=== PATIENT | male | born 1945 | race Caucasian/White ===

== ENCOUNTER → 2017-07-02 | Outpatient (CLI) | payer MEDICARE, OTHER ==
[2015-05-11 06:25] VITALS: BP 120/59
[~2017-07-02] MED LIST: ASPI-630 PO; BUSP10TA PO; ESOM40CA PO; FLUO20CA16 PO; LIPITOR80 MG PO; LISI1TAB5 PO; METF500T4 PO; METO50TA29 PO; POTA20TA12 PO; TAMS0.4C97 PO; TRAZ50TA15 PO
--- NOTE | 2017-07-02 16:51 | RAD ---
Carotid ultrasound, 07/02/2017: History: Carotid atherosclerosis Duplex evaluation of the carotid arteries in neck was performed including grayscale, color-flow and spectral Doppler analysis. There is moderate atherosclerotic plaquing in the common carotid arteries and at both carotid bifurcations, right greater than left. Some of these plaques are partially calcified. On the right, the peak systolic velocity in the internal carotid artery is 173 cm/s with an end-diastolic velocity of 29 cm/s. The internal carotid to common carotid artery ratio is 1.6. The peak systolic velocity measurement suggests narrowing in the 50-70% diameter range while the end-diastolic velocity measurement and the ratio suggests a lesser degree of narrowing. Correlation with the color images suggests that the narrowing probably is in the 50-70% diameter range. The proximal right internal carotid artery is tortuous. On the left the peak systolic velocity in the internal carotid artery is 91 cm/s with an end-diastolic velocity of 28 cm/s. These Doppler findings suggest narrowing in the 0-50% diameter range. Antegrade flow is present in both vertebral arteries in the neck. IMPRESSION: Moderate atherosclerotic plaquing at the carotid bifurcations, right greater than left with underlying luminal narrowing of the proximal right internal carotid artery in the 50-70% diameter range and narrowing of the proximal left internal carotid artery in the 0-50% diameter range. Note: Stenosis calculations for CTA, MRA and conventional angiography are based upon determination of the distal ICA diameter in accordance with the NASCET methodology. Stenosis calculations for Doppler studies are derived from validated velocity criteria which are known to correlate with NASCET methodology of determining stenosis.
== END | disposition home or self-care (01) ==
LOC: US 13:00
PROVIDERS: ATTEND Nurse Practitioner
DX: I65.23 Occlusion and stenosis of bilateral carotid arteries (principal); I10 Essential (primary) hypertension
CPT/HCPCS: 93880

== ENCOUNTER 2017-07-30 07:41 | Inpatient (IN) | payer MEDICARE, OTHER ==
[~2017-07-30] VITALS: Ht 175.3 cm; Wt 107.2 kg
[2017-07-30 08:20] VITALS: BP 110/61
[2017-07-30 08:42] LABS: INFLUENZA A PATIENT NEGATIVE (NEGATIVE); INFLUENZA B PATIENT NEGATIVE (NEGATIVE)
[2017-07-30 10:15] LABS: BASO % 0 % (0-3); EOS % 0 % (0-3); HEMATOCRIT 41.2 % (39.0-53.0); HEMOGLOBIN 14.4 g/dL (13.0-17.5); LYMPH # 0.9 x10^3/uL (1.0-4.8); LYMPH % 6 % (24-48); MEAN CORPUSCULAR HEMOGLOBIN 30 pg (25-35); MEAN CORPUSCULAR HGB CONC 35 g/dL (31-37); MEAN CORPUSCULAR VOLUME 86 fL (79-100); MONO # 0.9 x10^3/uL (0.0-1.1); MONO % 7 % (0-9); NEUT # 12.8 x10^3uL (1.8-7.7); NEUT % 87 % (31-73); PLATELET COUNT 221 x10^3/uL (140-400); RED BLOOD COUNT 4.81 x10^6/uL (4.30-5.70); RED CELL DISTRIBUTION WIDTH 12.9 % (11.5-14.5); WHITE BLOOD COUNT 14.7 x10^3/uL (4.0-11.0)
[2017-07-30] MEDS ORDERED: METO25TA2 PO (10:16)
[2017-07-30] MEDS ORDERED: PANT40TA5 PO (10:16)
[2017-07-30] MEDS ORDERED: ROSU40TA29 PO (10:16)
[2017-07-30 10:29] LABS: ALBUMIN 3.5 g/dL (3.4-5.0); ALBUMIN/GLOBULIN RATIO 1.1 (1.0-1.7); CALCIUM 8.7 mg/dL (8.5-10.1); CREATININE 1.4 mg/dL (0.7-1.3); GFR 49.8; POTASSIUM 4.2 mmol/L (3.5-5.1); TOTAL BILIRUBIN 0.5 mg/dL (0.2-1.0); TOTAL PROTEIN 6.7 g/dL (6.4-8.2)
[2017-07-30 11:03] LABS: % LYMPHS 5 % (24-48); % MONOS 4 % (0-10); % SEGS 91 % (35-66); PLT ESTIMATE ADEQUATE (ADEQUATE)
[2017-07-30] MEDS: IV NORMAL SALINE 1,000ML 1,000 ML IV SCH ×3 (11:03→21:38)
[2017-07-30 11:04] LABS: TOXIC GRANULATION SLIGHT
--- NOTE | 2017-07-30 11:12 | RAD ---
Abdomen, 2 views, 07/30/2017: History: Abdominal pain, nausea and vomiting Gas is present in large and small bowel in a nonspecific pattern. No free air is seen in the abdomen. There is no evidence of organomegaly. Lower pelvic calcifications are compatible with phleboliths.. There are moderate multilevel hypertrophic degenerative changes in the spine. IMPRESSION: No acute abdominal abnormality is detected.
--- NOTE | 2017-07-30 13:05 | HP ---
ADMIT DATE: 07/30/2017 HISTORY OF PRESENT ILLNESS: The patient has been feeling ill for the last 3 days prior to admission with increased nausea, some vomiting and severe diarrhea, diffuse abdominal discomfort, generalized weakness. The patient's white count was noted to be over 14,000 and had an elevated temperature. In any case, the patient was brought in for hydration and further evaluation of his diarrhea, abdominal pain, working diagnosis of possible viral gastroenteritis, ____ in the community as such. PAST MEDICAL HISTORY: Includes that of diabetes, obesity, hypertension, hypercholesterolemia, and BPH. MEDICATIONS: Include aspirin 81, buspirone 10 mg 3 times a day, Prozac 20 mg a day, lisinopril/HCTZ 20/12.5, metformin 500 b.i.d., metoprolol 25 mg daily, Protonix 40 daily, potassium chloride 20, Crestor 40, Flomax 0.4 and trazodone 50 at bedtime. ALLERGIES: No known allergies. FAMILY HISTORY: Positive for heart disease and diabetes. SOCIAL HISTORY: The patient denies smoking, alcohol or drug use. REVIEW OF SYSTEMS: As noted. Denies chest pain, shortness of breath, headaches, visual change, blurred vision, or double vision. Denies any neurological symptoms; primarily GI with nausea, mild vomiting and severe diarrhea and abdominal discomfort. Other than that, basically stable. PHYSICAL EXAMINATION: GENERAL: Pleasant white male, moderately obese. VITAL SIGNS: Blood pressure 110/60, respiratory rate 20, pulse 90, temperature 99.2. HEENT: The patient's head was atraumatic, normocephalic. Eyes: PERRLA without jaundice. Mouth and throat were normal. NECK: Supple, no JVD or thyromegaly. LUNGS: Diminished throughout, but clear. CARDIOVASCULAR: Regular sinus rhythm. ABDOMEN: Soft, protuberant. Diffuse tenderness, slight guarding, but no rebounding. EXTREMITIES: No clubbing, cyanosis or edema. NEUROLOGIC: Intact. Normal male genitalia. LABORATORY DATA: White count is noted was elevated to 14,000. Chemistries were basically unremarkable except for the creatinine elevated at 1.4, blood sugar 140. Serology negative for influenza. IMPRESSION: Gastroenteritis, abdominal pain, nausea, vomiting, dehydration, obesity, type 2 diabetes, and chronic kidney disease stage 3. PLAN: The patient will be admitted and placed on IV fluids. Adjust his medications. Support pain medication and antinausea medication as indicated. We will continue to monitor the patient accordingly and make further evaluation once he has been stabilized. RAQUEL LINO MD DR: JAVED/darren JOB#: [id number] / [id number]
[2017-07-30 13:59] LABS: BILIRUBIN,URINE NEG (NEG); CLARITY,URINE HAZY; COLOR,URINE AMBER; GLUCOSE,URINE NEG (NEG); UROBILINOGEN,URINE 0.2 mg/dL (0.2 mg/dL)
[2017-07-30 14:00] LABS: BACTERIA,URINE FEW /HPF (0-FEW); HYALINE CASTS, URINE FEW /HPF; NITRITE,URINE NEG (NEG); SQUAMOUS EPITHELIAL CELL,UR OCC /LPF; WBC,URINE 0 /HPF (0-4)
[2017-07-30] MEDS: busPIRone 10 MG TABLET. PO SCH ×2 (14:04→21:38)
[2017-07-30] MEDS: HEPARIN PF for SUB-Q USE 5,000 UNIT/0.5 ML VIAL. SQ SCH ×2 (14:07→21:36)
[2017-07-30] MEDS ORDERED: ALPR0.5T6 PO (14:14)
[2017-07-30 15:57] VITALS: BP 113/72
[2017-07-30] MEDS: metFORMIN 500 MG TABLET PO SCH (17:20)
[2017-07-30 19:48] VITALS: BP 136/70
[2017-07-30] MEDS: traZODone 50 MG TABLET. PO PRN (21:38)
[2017-07-30] MEDS: METOPROLOL SUCC 24HR ER 25 MG TAB.ER.24H. PO SCH (21:38)
[2017-07-30] MEDS: ATORVASTATIN CALCIUM 20 MG TABLET PO SCH (21:39)
[2017-07-30] MEDS: TAMSULOSIN 0.4 MG CAP.ER.24H. PO SCH (21:39)
[2017-07-30] MEDS: PANTOPRAZOLE 40 MG TABLET. PO SCH (21:40)
[2017-07-30 22:28] LABS: FECAL OB PT NEGATIVE (NEG)
[2017-07-30 23:12] VITALS: BP 110/64
[2017-07-31] MEDS: IV NORMAL SALINE 1,000ML 1,000 ML IV SCH ×2 (01:50→05:49)
[2017-07-31 03:12] LABS: HEMOGLOBIN A1C 6.1 % (4.8-5.6)
[2017-07-31] MEDS: HEPARIN PF for SUB-Q USE 5,000 UNIT/0.5 ML VIAL. SQ SCH ×3 (05:48→20:27)
[2017-07-31 05:56] VITALS: BP 106/61
[2017-07-31 06:41] LABS: BASO % 0 % (0-3); EOS # 0.2 x10^3/uL (0.0-0.7); EOS % 2 % (0-3); HEMATOCRIT 36.4 % (39.0-53.0); HEMOGLOBIN 12.7 g/dL (13.0-17.5); LYMPH # 2.5 x10^3/uL (1.0-4.8); LYMPH % 28 % (24-48); MEAN CORPUSCULAR HEMOGLOBIN 30 pg (25-35); MEAN CORPUSCULAR HGB CONC 35 g/dL (31-37); MEAN CORPUSCULAR VOLUME 87 fL (79-100); MONO # 1.2 x10^3/uL (0.0-1.1); MONO % 13 % (0-9); NEUT % 57 % (31-73); PLATELET COUNT 191 x10^3/uL (140-400); RED CELL DISTRIBUTION WIDTH 12.8 % (11.5-14.5); WHITE BLOOD COUNT 8.9 x10^3/uL (4.0-11.0)
[2017-07-31 06:48] LABS: CALCIUM 8.4 mg/dL (8.5-10.1); CREATININE 1.2 mg/dL (0.7-1.3); GFR 59.5; POTASSIUM 3.9 mmol/L (3.5-5.1)
--- NOTE | 2017-07-31 07:35 | RAD ---
Chest, 2 views, 07/30/2017: History: Fever and chills There has been a previous median sternotomy. The heart size and pulmonary vascularity are normal. No pulmonary infiltrates are seen. There is no evidence of pleural fluid. There is moderate hypertrophic spurring in the spine with bony bridging at multiple levels. IMPRESSION: No acute cardiopulmonary abnormality is detected.
[2017-07-31] MEDS: LISINOPRIL 20 MG TABLET PO SCH (08:54)
[2017-07-31] MEDS: hydroCHLOROthiazide 12.5 MG CAPSULE PO SCH (08:54)
[2017-07-31] MEDS: POTASSIUM CHLORIDE 20 MEQ TABLET.ER. PO SCH (08:54)
[2017-07-31] MEDS: metFORMIN 500 MG TABLET PO SCH ×2 (08:54→18:06)
[2017-07-31] MEDS: busPIRone 10 MG TABLET. PO SCH ×3 (08:55→20:16)
[2017-07-31] MEDS: FLUoxetine HCL 20 MG CAPSULE PO SCH (08:55)
[2017-07-31] MEDS: ASPIRIN 81 MG TAB.CHEW PO SCH (08:55)
[2017-07-31] MEDS ORDERED: METOPROLOL SUCC 24HR ER 25 MG TAB.ER.24H. PO SCH (09:00)
[2017-07-31] MEDS ORDERED: PNEUMOC CONJ VACC 23-VALENT 0.5 ML VIAL. VAX IM ONE (09:00)
[2017-07-31] MEDS ORDERED: PANTOPRAZOLE 40 MG TABLET. PO SCH (09:00)
[2017-07-31] MEDS ORDERED: TAMSULOSIN 0.4 MG CAP.ER.24H. PO SCH (09:00)
[2017-07-31 11:04] VITALS: BP 134/64
[2017-07-31 14:30] VITALS: BP 114/57
[2017-07-31 19:40] VITALS: BP 149/61
[2017-07-31] MEDS: traZODone 50 MG TABLET. PO PRN (20:16)
[2017-07-31] MEDS: TAMSULOSIN 0.4 MG CAP.ER.24H. PO SCH (20:16)
[2017-07-31] MEDS: PANTOPRAZOLE 40 MG TABLET. PO SCH (20:16)
[2017-07-31] MEDS: METOPROLOL SUCC 24HR ER 25 MG TAB.ER.24H. PO SCH (20:16)
[2017-07-31] MEDS: ATORVASTATIN CALCIUM 20 MG TABLET PO SCH (20:17)
[2017-07-31 23:09] VITALS: BP 115/65
[2017-08-01] MEDS: HEPARIN PF for SUB-Q USE 5,000 UNIT/0.5 ML VIAL. SQ SCH (05:20)
[2017-08-01 05:52] VITALS: BP 131/68
[2017-08-01 06:50] LABS: BASO % 1 % (0-3); EOS # 0.3 x10^3/uL (0.0-0.7); EOS % 3 % (0-3); HEMATOCRIT 36.7 % (39.0-53.0); HEMOGLOBIN 12.8 g/dL (13.0-17.5); LYMPH # 2.4 x10^3/uL (1.0-4.8); LYMPH % 28 % (24-48); MEAN CORPUSCULAR HEMOGLOBIN 30 pg (25-35); MEAN CORPUSCULAR HGB CONC 35 g/dL (31-37); MEAN CORPUSCULAR VOLUME 86 fL (79-100); MONO # 1.1 x10^3/uL (0.0-1.1); MONO % 13 % (0-9); NEUT # 4.7 x10^3uL (1.8-7.7); NEUT % 56 % (31-73); PLATELET COUNT 195 x10^3/uL (140-400); RED BLOOD COUNT 4.27 x10^6/uL (4.30-5.70); RED CELL DISTRIBUTION WIDTH 13.2 % (11.5-14.5); WHITE BLOOD COUNT 8.5 x10^3/uL (4.0-11.0)
[2017-08-01 07:03] LABS: CALCIUM 8.9 mg/dL (8.5-10.1); GFR 73.5; POTASSIUM 4.1 mmol/L (3.5-5.1)
[2017-08-01 09:08] VITALS: BP 131/68
[2017-08-01] MEDS: LISINOPRIL 20 MG TABLET PO SCH (09:08)
[2017-08-01] MEDS: FLUoxetine HCL 20 MG CAPSULE PO SCH (09:08)
[2017-08-01] MEDS: ASPIRIN 81 MG TAB.CHEW PO SCH (09:08)
[2017-08-01] MEDS: busPIRone 10 MG TABLET. PO SCH (09:09)
[2017-08-01] MEDS: POTASSIUM CHLORIDE 20 MEQ TABLET.ER. PO SCH (09:09)
[2017-08-01] MEDS: hydroCHLOROthiazide 12.5 MG CAPSULE PO SCH (09:09)
[2017-08-01] MEDS: metFORMIN 500 MG TABLET PO SCH (09:09)
--- NOTE | 2017-08-01 19:14 | PN ---
DATE: SUBJECTIVE: The patient came in with dehydration and generalized weakness. The patient is doing better. We are advancing his diet slowly to see if he tolerates, that he also had quite a bit of diarrhea, but that is slowing down as well. OBJECTIVE: VITAL SIGNS: Blood pressure 114/60, respiratory rate 20, pulse 70, afebrile. GENERAL: The patient is alert and oriented. LUNGS: Diminished. ABDOMEN: Soft, nontender. White count has come down from almost 15,000 down to approximately 9, hemoglobin from 14 to 12 showing the degree of dehydration, otherwise blood sugars seem to be improving and will go ahead and continue to monitor him accordingly on the advancement of his diet. His urine specific gravity is 1.030 consistent with severe dehydration. IMPRESSION: Dehydration, diarrhea. PLAN: As above. Continue to monitor the patient accordingly, make further evaluation as he progresses on his diet. RAQUEL LINO MD DR: JAVED/darren JOB#: [id number] / [id number]
--- NOTE | 2017-08-01 21:29 | DS ---
DATE OF DISCHARGE: 08/01/2017 HOSPITAL COURSE: The patient is a 71-year-old male who came in with nausea, vomiting, diarrhea. The patient has been feeling very well and came in, he was markedly dehydrated white count over 14,000, elevated temperature, although his influenza screen was negative, the patient obviously in some type of viral infection. He was dehydrated. He is a type 2 diabetic. He has got chronic kidney disease. He was brought in. He was rehydrated basically and he made good progress during the rest of his hospitalization. Advanced his diet slowly and he recovered very nicely. Chest x-ray and abdominal series were basically unremarkable. Labs did not demonstrate anything in particular except he is slightly anemic at 12.8, increased monocytes consistent with his probably a viral infection. Blood sugars were in the low 100s. Urine showed marked concentration of urine, but in any case, the patient made excellent progress during the rest of his hospitalization. See EMRAD, decreased activity, increase fluids. He will be discharged to home, followed up as an outpatient and make further evaluation on him as indicated as an outpatient. IMPRESSION: Dehydration, gastroenteritis, diarrhea, morbid obesity, type 2 diabetes, ____, he had acute renal failure secondary to dehydration. Creatinine improved from 1.4 to 1. RAQUEL LINO MD DR: JAVED/darren JOB#: [id number] / [id number]
== END 2017-08-01 10:00 | disposition home or self-care (01) | DRG 392 ==
LOC: 1 SOUTH 07:52
PROVIDERS: ADMIT Family Medicine; ATTEND Family Medicine
DX: K52.9 Noninfective gastroenteritis and colitis, unspecified (principal); N17.9 Acute kidney failure, unspecified; E11.22 Type 2 diabetes mellitus with diabetic chronic kidney disease; D64.9 Anemia, unspecified; E66.01 Morbid (severe) obesity due to excess calories; B34.9 Viral infection, unspecified; E78.00 Pure hypercholesterolemia, unspecified; E86.0 Dehydration; I12.9 Hypertensive chronic kidney disease with stage 1 through stage 4 chronic kidney disease, or unspecified chronic kidney disease; N18.3 Chronic kidney disease, stage 3 (moderate); N40.0 Benign prostatic hyperplasia without lower urinary tract symptoms; Z83.3 Family history of diabetes mellitus; Z82.49 Family history of ischemic heart disease and other diseases of the circulatory system; Z79.4 Long term (current) use of insulin; Z68.34 Body mass index [BMI] 34.0-34.9, adult
CPT/HCPCS: 36415; 71046; 74021; 80048; 80053; 81001; 82274; 82550; 82947; 83036; 84484; 85007; 85025; 87324; 87804; 90732; J7030

== ENCOUNTER → 2017-08-20 | Outpatient (CLI) | payer MEDICARE, OTHER ==
[2017-08-01 09:08] VITALS: BP 131/68
[~2017-08-20] MED LIST changes: +ALPR0.5T6 PO; +METO25TA2 PO; +PANT40TA5 PO; +ROSU40TA29 PO
[2017-08-20 15:58] LABS: ALBUMIN 3.8 g/dL (3.4-5.0); ALBUMIN/GLOBULIN RATIO 0.9 (1.0-1.7); CALCIUM 9.3 mg/dL (8.5-10.1); CREATININE 1.2 mg/dL (0.7-1.3); GFR 59.5; POTASSIUM 4.6 mmol/L (3.5-5.1); TOTAL BILIRUBIN 0.6 mg/dL (0.2-1.0); TOTAL PROTEIN 7.9 g/dL (6.4-8.2)
== END | disposition home or self-care (01) ==
LOC: LAB 14:39
PROVIDERS: ATTEND Nurse Practitioner
DX: E78.5 Hyperlipidemia, unspecified (principal)
CPT/HCPCS: 36415; 80053; 80061

== ENCOUNTER → 2017-08-27 | Outpatient (CLI) | payer MEDICARE, OTHER ==
[2017-08-01 09:08] VITALS: BP 131/68
[2017-08-27 14:08] LABS: BASO # 0.1 x10^3/uL (0.0-0.2); BASO % 1 % (0-3); EOS # 0.3 x10^3/uL (0.0-0.7); EOS % 3 % (0-3); HEMOGLOBIN 14.8 g/dL (13.0-17.5); LYMPH % 29 % (24-48); MEAN CORPUSCULAR HEMOGLOBIN 30 pg (25-35); MEAN CORPUSCULAR HGB CONC 34 g/dL (31-37); MEAN CORPUSCULAR VOLUME 87 fL (79-100); MONO # 0.8 x10^3/uL (0.0-1.1); MONO % 8 % (0-9); NEUT % 59 % (31-73); PLATELET COUNT 237 x10^3/uL (140-400); RED BLOOD COUNT 4.95 x10^6/uL (4.30-5.70); RED CELL DISTRIBUTION WIDTH 13.2 % (11.5-14.5); WHITE BLOOD COUNT 10.1 x10^3/uL (4.0-11.0)
[2017-08-28 03:11] LABS: HEMOGLOBIN A1C 5.8 % (4.8-5.6)
== END | disposition home or self-care (01) ==
LOC: LAB 13:20
PROVIDERS: ATTEND Family Medicine
DX: E11.65 Type 2 diabetes mellitus with hyperglycemia (principal)
CPT/HCPCS: 36415; 82043; 83036; 85025; 87086

== ENCOUNTER → 2017-09-02 | Outpatient (CLI) | payer MEDICARE, OTHER ==
[~2017-09-02] MED LIST changes: +BUPIVACAINE MPF 0.25% 10 ML VIAL. ONE; +IOHEXOL 300 MG/ML 50 ML VIAL. ONE; +LIDOCAINE 1% PF 30 ML VIAL. ONE; +methylPREDNISolone ACETATE 40 MG/ML VIAL. ONE
== END | disposition home or self-care (01) ==
LOC: SURG 13:32
PROVIDERS: ATTEND Anesthesiology
DX: S46.001A Unspecified injury of muscle(s) and tendon(s) of the rotator cuff of right shoulder, initial encounter (principal); M47.816 Spondylosis without myelopathy or radiculopathy, lumbar region; G89.29 Other chronic pain; X58.XXXA Exposure to other specified factors, initial encounter; Y93.89 Activity, other specified; Y92.89 Other specified places as the place of occurrence of the external cause; Y99.8 Other external cause status
CPT/HCPCS: 99204; J1030; J2001; J3490; Q9967

== ENCOUNTER → 2018-07-06 | Outpatient (CLI) | payer MEDICARE, OTHER ==
[~2018-07-06] MED LIST changes: -BUPIVACAINE MPF 0.25% 10 ML VIAL. ONE; -IOHEXOL 300 MG/ML 50 ML VIAL. ONE; -LIDOCAINE 1% PF 30 ML VIAL. ONE; +METF500T16 PO; -METF500T4 PO; +ROSU40TA21 PO; -ROSU40TA29 PO; +TRAZ-85 PO; -TRAZ50TA15 PO; -methylPREDNISolone ACETATE 40 MG/ML VIAL. ONE
[2018-07-06 15:16] LABS: BILIRUBIN,URINE NEG (NEG); CLARITY,URINE HAZY; COLOR,URINE YELLOW; GLUCOSE,URINE NEG (NEG); NITRITE,URINE NEG (NEG); RBC,URINE RARE /HPF (0-2); UROBILINOGEN,URINE 0.2 mg/dL (0.2 mg/dL)
[2018-07-06 15:17] LABS: BACTERIA,URINE 0 /HPF (0-FEW); SPERM,URINE PRESENT /HPF; SQUAMOUS EPITHELIAL CELL,UR OCC /LPF; WBC,URINE OCC /HPF (0-4)
[2018-07-06 15:22] LABS: BASO # 0.1 x10^3/uL (0.0-0.2); BASO % 1 % (0-3); EOS # 0.2 x10^3/uL (0.0-0.7); EOS % 2 % (0-3); HEMATOCRIT 44.7 % (39.0-53.0); HEMOGLOBIN 15.4 g/dL (13.0-17.5); LYMPH # 2.5 x10^3/uL (1.0-4.8); LYMPH % 24 % (24-48); MEAN CORPUSCULAR HEMOGLOBIN 30 pg (25-35); MEAN CORPUSCULAR HGB CONC 35 g/dL (31-37); MEAN CORPUSCULAR VOLUME 87 fL (79-100); MONO # 0.7 x10^3/uL (0.0-1.1); MONO % 7 % (0-9); NEUT % 66 % (31-73); PLATELET COUNT 260 x10^3/uL (140-400); RED BLOOD COUNT 5.14 x10^6/uL (4.30-5.70); RED CELL DISTRIBUTION WIDTH 12.9 % (11.5-14.5); WHITE BLOOD COUNT 10.6 x10^3/uL (4.0-11.0)
[2018-07-06 15:30] LABS: ALBUMIN 3.7 g/dL (3.4-5.0); CALCIUM 8.9 mg/dL (8.5-10.1); CREATININE 1.2 mg/dL (0.7-1.3); GFR 59.3; POTASSIUM 4.3 mmol/L (3.5-5.1); TOTAL BILIRUBIN 0.5 mg/dL (0.2-1.0); TOTAL PROTEIN 7.5 g/dL (6.4-8.2)
[2018-07-07 11:18] LABS: THYROID STIM HORMONE (TSH) 2.086 uIU/mL (0.358-3.740)
[2018-07-08 12:09] LABS: PSA FREE 0.56 ng/mL; PSA TOTAL 1.4 ng/mL (0.0-4.0)
== END | disposition home or self-care (01) ==
LOC: LAB 13:33
PROVIDERS: ATTEND Family Medicine
DX: R35.1 Nocturia (principal); E11.65 Type 2 diabetes mellitus with hyperglycemia; I10 Essential (primary) hypertension
CPT/HCPCS: 36415; 80053; 80061; 81001; 82043; 84153; 84154; 84443; 85025

== ENCOUNTER → 2020-10-24 | Outpatient (CLI) | payer MEDICARE, OTHER ==
[~2020-10-24] MED LIST changes: +IOHEXOL 240 MG/ML 50ML VIAL. ONE; +IOHEXOL 300 MG/ML 75 ML VIAL. IV ONE; +LISI1TAB37 PO; -LISI1TAB5 PO; -PANT40TA5 PO; +PANT40TA6 PO; -ROSU40TA21 PO; +ROSU40TA22 PO; +TRAZ-120 PO; -TRAZ-85 PO
[2020-10-24 13:39] LABS: BASO # 0.1 x10^3/uL (0.0-0.2); BASO % 1 % (0-3); EOS # 0.2 x10^3/uL (0.0-0.7); EOS % 2 % (0-3); HEMATOCRIT 45.2 % (39.0-53.0); HEMOGLOBIN 15.3 g/dL (13.0-17.5); LYMPH # 2.1 x10^3/uL (1.0-4.8); LYMPH % 20 % (24-48); MEAN CORPUSCULAR HEMOGLOBIN 30 pg (25-35); MEAN CORPUSCULAR HGB CONC 34 g/dL (31-37); MEAN CORPUSCULAR VOLUME 88 fL (79-100); MONO # 1.1 x10^3/uL (0.0-1.1); MONO % 10 % (0-9); NEUT # 7.1 x10^3uL (1.8-7.7); NEUT % 67 % (31-73); PLATELET COUNT 266 x10^3/uL (140-400); RED BLOOD COUNT 5.12 x10^6/uL (4.30-5.70); RED CELL DISTRIBUTION WIDTH 12.9 % (11.5-14.5); WHITE BLOOD COUNT 10.6 x10^3/uL (4.0-11.0)
[2020-10-24 13:41] LABS: ALBUMIN 3.8 g/dL (3.4-5.0); CALCIUM 8.9 mg/dL (8.5-10.1); CREATININE 1.5 mg/dL (0.7-1.3); GFR 45.5; POTASSIUM 4.2 mmol/L (3.5-5.1); TOTAL BILIRUBIN 0.6 mg/dL (0.2-1.0); TOTAL PROTEIN 7.8 g/dL (6.4-8.2)
--- NOTE | 2020-10-24 14:26 | RAD ---
CT abdomen pelvis with contrast. HISTORY: Abdominal pain CT abdomen pelvis was done using 60 mL Omnipaque 300 contrast. Lung bases are clear. There is no effu pamela. There is a midline abdominal wall hernia just below the xiphoid in the upper abdomen. There is no bowel in the hernia. Liver is normal in appearance. There are calcified gallstones in the gallblad josefina. The gallbladder wall is not thickened. Spleen and adrenal glands are normal. Pancreas is normal. There is no mass or hydronephrosis in the kidneys. There is no bowel obstruction. Appendix is normal . There are bilateral inguinal hernias. Prostate is generous in size. There is degenerative and hyper trophic change in the lumbar spine without severe spinal stenosis. IMPRESSION: 1. Cholelithiasis. 2. Bilateral inguinal hernias. 3. Enlarged prostate. 4. No abdominal or pelvic mass or other acute finding. PQRS Compliance Statement: One or more of the following individualized dose reduction techniques were utilized for this examinat ion: 1. Automated exposure control 2. Adjustment of the mA and/or kV according to patient size 3. Use of iterative reconstruction technique Electronically signed by: Valentín Burris MD (10/24/2020 2:24 PM) [facility]
[2020-10-24 14:53] LABS: BACTERIA,URINE 0 /HPF (0-FEW); BILIRUBIN,URINE NEG (NEG); CLARITY,URINE CLEAR; COLOR,URINE AMBER; GLUCOSE,URINE NEG (NEG); NITRITE,URINE NEG (NEG); RBC,URINE 0 /HPF (0-2); UROBILINOGEN,URINE 0.2 mg/dL (0.2 mg/dL); WBC,URINE 0 /HPF (0-4)
== END ==
LOC: CT 12:07
PROVIDERS: ATTEND Family Medicine
DX: K80.20 Calculus of gallbladder without cholecystitis without obstruction (principal); K40.90 Unilateral inguinal hernia, without obstruction or gangrene, not specified as recurrent; N40.0 Benign prostatic hyperplasia without lower urinary tract symptoms
CPT/HCPCS: 36415; 74177; 80053; 81001; 82150; 83690; 85025; 87086; Q9967

== ENCOUNTER → 2020-10-30 | Outpatient (CLI) | payer MEDICARE, OTHER ==
[~2020-10-30] MED LIST changes: -IOHEXOL 240 MG/ML 50ML VIAL. ONE; -IOHEXOL 300 MG/ML 75 ML VIAL. IV ONE
--- NOTE | 2020-10-30 09:12 | RAD ---
Examination: Ultrasound abdomen complete HISTORY: History of abdominal distention, abdominal pain COMPARISON: None available FINDINGS: The visualized pancreas grossly appears unremarkable. There is increased echogenicity identified thro ughout the liver likely hepatic steatosis. The common bile duct measures 4.2 mm in transverse dimensi on. There is increased echogenicity identified throughout the liver likely hepatic steatosis. Multipl e echogenicities identified in the gallbladder likely cholelithiasis. The right kidney measures 11.0 x 6.7 x 4.9 cm. The common bile duct measures 4.2 mm in transverse dimension. The visualized aorta, I VC within normal limits of dimension. IMPRESSION: 1. Cholelithiasis. 2. Hepatic steatosis. Electronically signed by: Washington Claros MD (10/30/2020 9:10 AM) [id number]
== END ==
LOC: US 07:57
PROVIDERS: ATTEND Family Medicine
DX: K80.20 Calculus of gallbladder without cholecystitis without obstruction (principal); K76.0 Fatty (change of) liver, not elsewhere classified
CPT/HCPCS: 76705